=== PATIENT | male | born 1940 | race Caucasian/White ===

== ENCOUNTER 2017-10-08 17:30 | Emergency (ER) | payer MEDICARE, OTHER ==
[2017-10-08 17:42] VITALS: BP 135/74
--- NOTE | 2017-10-08 18:10 | RAD ---
INDICATION: LEFT elbow pain. Fall in March 2017. History of bursitis with drainage. Decreased range of motion. COMPARISON: No relevant prior exams available on the [facility] PACS for comparison. TECHNIQUE: AP, lateral, and oblique views LEFT elbow. REPORT: Negative for joint effusion, fracture, or malalignment. Preserved joint spaces. Small accessory ossicle or sequela of remote ligament or tendon injury at the lateral epicondyle. Significant dorsal soft tissue swelling. IMPRESSION: 1. Significant dorsal soft tissue swelling; correlate for olecranon bursitis. 2. Small accessory ossicle or sequela of remote ligament or tendon injury at the lateral epicondyle. .
--- NOTE | 2017-10-08 18:23 | UC ---
Gigi Burns Elizabeth, scribed for Chong Bird MD on 10/08/17 at 1814 . Upper Extremity HPI - HPI Summary HPI Summary: This patient is a 77 year old M presenting to [facility] with a chief complaint of intermittent left elbow pain and swelling since 1 week ago. The patient notes that he usually gets his elbow drained by an orthopedist. Per triage note, the patient reports that he has lost significant mobility in his left arm. The patient rates the pain 2/10 in severity. Symptoms aggravated by nothing. Symptoms alleviated by nothing. The patient notes that he came here today for medication to manage the pain and for a referral to an orthopedist. - History of Current Complaint Chief Complaint: UCUpperExtremity Stated Complaint: ELBOW PAIN Time Seen by Provider: 10/08/17 17:37 Hx Obtained From: Patient Onset/Duration: Gradual Onset, Lasting Weeks - 1 week, Still Present Severity Initially: Mild Severity Currently: Mild Pain Intensity: 2 Pain Scale Used: 0-10 Numeric Aggravating Factor(s): Nothing Alleviating Factor(s): Nothing Associated Signs And Symptoms: Positive: Swelling, Other - decreased ROM Related History: Other: - bursitis in left elbow - Allergies/Home Medications Allergies/Adverse Reactions: Allergies Allergy/AdvReac Type Severity Reaction Status Date / Time No Known Allergies Allergy Verified 10/08/17 17:42 Home Medications: Home Medications Atorvastatin* [Lipitor 20 MG*] 20 mg PO DAILY 10/08/17 [History Confirmed ] Lisinopril [Lisinopril 2.5 MG-] 2.5 mg PO DAILY 10/08/17 [History Confirmed ] Rivaroxaban TAB(*) [Xarelto 20 mg] 20 mg PO DAILY 10/08/17 [History Confirmed ] PMH/Surg Hx/FS Hx/Imm Hx Previously Healthy: Yes - Surgical History Surgical History: Yes Surgery Procedure, Year, and Place: 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 - Social History Alcohol Use: Daily Alcohol Amount: 1 beer or 1-2 glasses of wine/day Substance Use Type: None Smoking Status (MU): Former Smoker Type: Cigarettes Length of Time of Smoking/Using Tobacco: 12 years Have You Smoked in the Last Year: No When Did the Patient Quit Smoking/Using Tobacco: 44 years ago - Immunization History Most Recent Influenza Vaccination: January 2015 Most Recent Tetanus Shot: up to date Most Recent Pneumonia Vaccination: within 5 years Review of Systems Constitutional: Negative - NEGATIVE FEVER ENT: Negative - NEGATIVE EPISTAXIS Gastrointestinal: Negative - NEGATIVE VOMITING Musculoskeletal: Arthralgia - in left elbow, Decreased ROM - in left elbow, Edema - in left elbow All Other Systems Reviewed And Are Negative: Yes Physical Exam - Summary Physical Exam Summary: VITAL SIGNS: Reviewed. GENERAL: Patient is a well-developed and nourished MALE who is lying comfortable in the stretcher. Patient is not in any acute respiratory distress. HEAD AND FACE: Normocephalic EYES: PERRLA, EOMI x 2. EARS: Hearing grossly intact. MOUTH: Oropharynx within normal limits. NECK: Supple, trachea is midline, no adenopathy, no JVD, no carotid bruit. CHEST: Symmetric, no tenderness at palpation LUNGS: Clear to auscultation bilaterally. No wheezing or crackles. CVS: Regular rate and rhythm, S1 and S2 present, no murmurs or gallops appreciated. ABDOMEN: Soft, non-tender. Bowel sounds are normal. No abdominal abnormal pulsations. EXTREMITIES: no cyanosis or clubbing. Swelling in left elbow with no erythema, no increase in warmth, slight decrease in ROM, good pulses, good capillary refill NEURO: Alert and oriented x 3. No acute neurological deficits. Speech is normal and follows commands. SKIN: Dry and warm Triage Information Reviewed: Yes Vital Signs: Initial Vital Signs Temp 98.7 F 10/08/17 17:32 Pulse 67 10/08/17 17:32 Resp 18 10/08/17 17:32 BP 135/74 10/08/17 17:32 Pulse Ox 98 10/08/17 17:32 Vital Signs Reviewed: Yes Upper Extremity Course/Dx - Course Course Of Treatment: X-ray positive for bursitis. The patient was given a prescription for [place] and a referral for orthopedics. Patient is hemodynamically stable alert and oriented 3. - Differential Dx/Diagnosis Differential Diagnosis/HQI/PQRI: Bursitis, Fracture (Closed), Strain, Sprain Provider Diagnoses: Elbow bursitis Discharge - Sign-Out/Discharge Documenting (check all that apply): Discharge/Admit/Transfer - Discharge Plan Condition: Stable Disposition: HOME Discharge Disposition Comment: discharge home Prescriptions: Hydrocodone/Acetaminophen [[place] 5-325 mg] 1 tab PO Q6H PRN #12 tab MDD 4 PRN Reason: Pain Patient Education Materials: Elbow Bursitis (ED), Arthralgia (ED) Referrals: Trino Shore MD [Primary Care Provider] - Ankur Mullins MD [Medical Doctor] - 1 Day Additional Instructions: Take medications as instructed Increase your fluid intake Return to the UC if symptoms worsen - Billing Disposition and Condition Condition: STABLE Disposition: Home The documentation as recorded by the Gigi william Elizabeth accurately reflects the service I personally performed and the decisions made by me, Chong Bird MD.
== END 2017-10-08 18:26 | disposition home or self-care (01) ==
LOC: UCEAST 17:30
DX: M70.32 Other bursitis of elbow, left elbow (principal); Y93.9 Activity, unspecified; Z95.1 Presence of aortocoronary bypass graft; Z96.652 Presence of left artificial knee joint; Z87.891 Personal history of nicotine dependence
CPT/HCPCS: 99211; G0463

== ENCOUNTER 2018-10-05 08:51 | Emergency (ER) | payer MEDICARE, OTHER ==
--- OUTSIDE RECORDS SUMMARY | 2018-10-05 09:00 | XMS REPORT | Continuity of Care Document ---
:1940 External Reference #:[id number] Author Name Doris Oneill Care Team Providers Name Role Phone Suzan Mullen MD Primary Care Physician Unavailable Payers Date Identification Numbers Payment Provider Subscriber Policy Number: [id number] Medicare Krzysztof Hutchins PayID: [id number] [address] [place] [address] Effective: 2011 Policy Number: [id number] [employer] Krzysztof Hutchins Expires: 2016 PayID: [id number] [address] [address] [place] [address] Expires: 2016 Policy Number: [id number] Private Ins Krzysztof Hutchins PayID: [id number] Policy Number: [id number] [facility] Krzysztof Hutchins PayID: [id number] [address] [place] [address] Problems Active Problems Provider Date Chronic ischemic heart disease Lit Wang M.D., [facility], Onset: 2013 FASNC Atrial fibrillation Lit Wang M.D., [facility], Onset: 03/05/2015 FASNC Generalized ischemic myocardial Lit Wang M.D., [facility], Onset: 2015 dysfunction FASNC Note: EF 40-45% Coronary arteriosclerosis Lit Wang M.D., [place], [facility] Onset: 2017 Thoracic aortic ectasia Lit Wang M.D., [place], [facility] Onset: 10/03/2017 Cardiac defibrillator in situ Trino Shore M.D.,[facility] Onset: 01/08/2018 Note: w/ pacer Benign prostatic hypertrophy without Trino Shore M.D.,FACP Onset: outflow obstruction Family History Date Family Member(s) Observation Comments Father Congestive Heart Failure age 77 (CHF) Father due to Heart () Disease Mother Longivity lived to 100 Mother due to Natural () Causes Mother Depression Siblings 2 Brother: Fatal MS age47 Brother: HTN, living age 79 First Brother Hypertension : (age 47 Second Brother due to MS Years) Social History Type Date Description Comments Sex Unknown Marital Status Lives With Occupation Retired but runs a [employer] Tobacco Use Start: Unknown End: Former Cigarette Smoker Unknown Smoking Status Reviewed: 09/12/18 Former Cigarette Smoker ETOH Use Occasionally consumes alcohol ETOH Use 01/08/2018 consumes 3 beers per week Tobacco Use Start: Unknown End: Patient is a former Unknown smoker Recreational Drug Use Denies Drug Use Exercise Type/Frequency Exercises sporadically Allergies, Adverse Reactions, Alerts Active Allergies Reaction Severity Comments Date Altace Mild hypotension 09/08/2015 Medications Active Medications SIG Qnty Indications Ordering Date Provider Trazodone HCL 1-2 tablets at 30tabs G47.00 Jonathan Mckeon NP 09/12/2018 50mg bedtime as needed. Tablets Ropinirole HCL take 1 tablet by 90tabs Trino Hidalgo 01/08/2018 0.5mg mouth every night [place], Tablets for rls M.D.,FACP Shingrix 0.5 milliliters 2units Trino Hidalgo 01/08/2018 50mcg intramuscular now [place], Suspension Rec and 2-3 months later M.D.,FACP repeat Fluoxetine HCL 1 by mouth every day 90caps Jonathan Mckeon NP 07/20/2017 20mg Capsules Magnesium Oxide -MG 1 by mouth every day 120tabs Lit Bhaskar 02/22/2017 Supplement Valente Wang, 200mg FACCosmo, MATTHEW Tablets Wellbutrin XL take 1 tablet, 90tabs Trino Hidalgo 02/18/2017 150mg extended release 24 [place], Tablets ER 24HR hour orally every M.D.,FACP morning Furosemide 1 by mouth every day 90tabs Lit Bhaskar 02/05/2017 20mg Tablets Valente Wang, FACC, FASNC Dofetilide 1 by mouth twice a 180caps Lit Muro 01/22/2017 250mcg day Valente Wang, Capsules MATTHEW KELLEY Spironolactone 1 by mouth every day 90tabs Litra Muro 03/04/2015 25mg Valente Wang, Tablets MATTHEW KELLEY ALL Day Relief prn for pain Unknown 220mg Tablets Tamsulosin HCL 1 by mouth every day 90caps Jonathan Mckeon NP 0.4mg Capsules Clonazepam Take 1 Tablet By 60tabs Jonathan Mckeon NP 0.5mg Mouth Once Or Twice Tablets Daily as Needed (Max Dose Of 2 Per Day) Protonix take 1 tablet, 90tabs Trino Hidalgo 40mg Tablets delayed release DR Silviano (enteric coated) [facility] orally every day Metoprolol Succinate take 1 tablet by 90tabs Lit Muro ER mouth once daily Valente Wang, 25mg Tablets ER 24HR MATTHEW KELLEY Lisinopril 1 tablet by mouth 90tabs [facility] Bhaskar 2.5mg daily in the morning Valente Wang, Tablets MATTHEW KELLEY Xarelto 1 by mouth every day 90tabs [facility] Bhaskar 20mg Tablets Valente Wang FACC, FASNC Aspirin 1 by mouth every day 90units Unknown 81mg Chewtabs Atorvastatin Calcium take 1 tablet at 90tabs Litra Muro bedtime Valente Wang, 20mg Tablets MATTHEW KELLEY History Medications Altace 1 po qd 90caps [facility] Bhaskar Wang, 09/30/2012 - 10mg Capsules [place] Victor FASNC 03/04/2015 Pantoprazole Sodium 1 by mouth every Unknown - 40mg day 01/08/2018 Tablets Flomax 1 by mouth every 90caps Trino Hidalgo - 0.4mg Capsules trisha Shore M.D.,[facility] 01/08/2018 Cefpodoxime Proxetil ( 1 tablet po 2 Unknown - Vantin) times daily for 3 01/18/2016 200mg Tablets days Dofetilide ( Tikosyn) 1 cap po every 12 90tabs Lit Wang, - hours M.DZackery, [facility], [facility] 01/22/2017 Tablets Buproprion XL 1 by mouth daily Unknown - 150mg 03/23/2017 Ramipril 1 by mouth every Unknown - 10mg Capsules day 09/07/2015 Furosemide 2 by mouth every 180tabs Lit Wang, - 20mg Tablets morning M.D., [facility], [facility] 02/05/2017 Amiodarone HCL 1 by mouth bid Unknown - 200mg 08/27/2015 Tablets Flexeril 1 by mouth qd prn 60tabs Unknown - 10mg Tablets 10/09/2015 Clonazepam 1 by mouth twice Unknown - 0.5mg Tablets a day as needed 12/06/2016 Dispers Metoprolol Succinate 1 1/2 by mouth 135tabs Lit Wang, - ER every day M.DZackery, [facility], [facility] 01/18/2016 50mg Tablets ER 24HR Fluoxetine HCL (PMDD) 1 by mouth every 30caps Trino Hidalgo - day Valente Shore,[facility] 07/20/2017 20mg Capsules Medications Administered in Office Medication SIG Qnty Indications Ordering Provider Date Technetium TC 99M Lit Wang M.D., 09/24/2012 Tetrofosmin, Per Unit Dose [facility] Up To 40 Millicuries Injection Immunizations CPT Code Status Date Vaccine Lot # [id number] Given 01/08/2018 Influenza Virus Vaccine, Quadrivalent, Split, [id number] Preservative Free 09152 Given 12/28/2016 Influenza Virus Vaccine, Quadrivalent, Split, [id number] Preservative Free 06901 Given 12/28/2016 Pneumococcal Conjugate Vaccine 13 Valent For [id number] Intramuscular Use Vital Signs Date Vital Result Comment 09/12/2018 2:22pm Height 66.25 inches 5'6.25" Weight 188.00 lb Heart Rate 61 /min BP Systolic 128 mmHg BP Diastolic 75 mmHg Body Temperature 97.9 F O2 % BldC Oximetry 96 % BMI (Body Mass Index) 30.1 kg/m2 02/25/2018 12:48pm Height 66.25 inches 5'6.25" Weight 185.00 lb Heart Rate 60 /min regular BP Systolic Sitting 110 mmHg LA reg cuff BP Diastolic Sitting 65 mmHg LA reg cuff BP Systolic Standing 120 mmHg LA reg cuff BP Diastolic Standing 65 mmHg LA reg cuff Respiratory Rate 18 /min BMI (Body Mass Index) 29.6 kg/m2 Ejection Fraction 40-45% 02/18/18 ECHO 02/05/2018 10:12am Height 66.25 inches 5'6.25" Weight 186.00 lb Heart Rate 72 /min BP Systolic 125 mmHg BP Diastolic 71 mmHg Respiratory Rate 14 /min Pain Level 0 O2 % BldC Oximetry 98 % BMI (Body Mass Index) 29.8 kg/m2 01/08/2018 1:00pm Height 66.25 inches 5'6.25" Weight 188.00 lb Heart Rate 59 /min BP Systolic Sitting 118 mmHg BP Diastolic Sitting 54 mmHg Body Temperature 97.0 F O2 % BldC Oximetry 97 % BMI (Body Mass Index) 30.1 kg/m2 10/03/2017 9:57am Height 69 inches 5'9" Weight 186.00 lb Heart Rate 68 /min BP Systolic Sitting 154 mmHg BP Diastolic Sitting 80 mmHg BP Systolic Standing 130 mmHg BP Diastolic Standing 70 mmHg Respiratory Rate 20 /min BMI (Body Mass Index) 27.5 kg/m2 Ejection Fraction 40-45% 01-01-2017 10/03/2017 9:52am Height 69 inches 5'9" Respiratory Rate 16 /min Ejection Fraction 40-45% as of 12/2016 echo 03/27/2017 12:56pm Height 69 inches 5'9" Weight 180.00 lb Heart Rate 60 /min BP Systolic Sitting 122 mmHg Rue reg cuff BP Diastolic Sitting 74 mmHg Rue reg cuff BP Systolic Standing 120 mmHg Rue BP Diastolic Standing 72 mmHg Rue Respiratory Rate 16 /min BMI (Body Mass Index) 26.6 kg/m2 Ejection Fraction 40-45% 01/01/17 02/05/2017 8:12am Height 69 inches 5'9" Weight 182.00 lb with shoes Heart Rate 60 /min BP Systolic Sitting 116 mmHg Rue reg cuff BP Diastolic Sitting 66 mmHg Rue reg cuff BP Systolic Standing 122 mmHg Rue reg cuff BP Diastolic Standing 70 mmHg Rue reg cuff Respiratory Rate 15 /min BMI (Body Mass Index) 26.9 kg/m2 Ejection Fraction 40-45% 01/01/2017-echo 12/28/2016 1:35pm Height 69 inches 5'9" Weight 178.50 lb Heart Rate 58 /min BP Systolic Sitting 142 mmHg BP Diastolic Sitting 78 mmHg Respiratory Rate 14 /min Body Temperature 98.0 F BMI (Body Mass Index) 26.4 kg/m2 01/19/2016 9:30am Height 69 inches 5'9" Weight 173.00 lb with shoes Heart Rate 60 /min BP Systolic Sitting 140 mmHg Ra reg cuff BP Diastolic Sitting 90 mmHg Ra reg cuff BP Systolic Standing 134 mmHg Ra reg cuff BP Diastolic Standing 84 mmHg Ra reg cuff Respiratory Rate 16 /min BMI (Body Mass Index) 25.5 kg/m2 Ejection Fraction 30-35% date 08/27/15 ECHO 11/08/2015 12:14pm Height 69 inches 5'9" Weight 171.00 lb w/o shoes Heart Rate 88 /min irreg BP Systolic Sitting 118 mmHg Rue, reg cuff BP Diastolic Sitting 80 mmHg Rue, reg cuff BP Systolic Standing 112 mmHg Rue BP Diastolic Standing 84 mmHg Rue Respiratory Rate 16 /min BMI (Body Mass Index) 25.2 kg/m2 Ejection Fraction 30-35% As of 08/27/15 echo 09/08/2015 1:41pm Height 69 inches 5'9" Weight 180.00 lb with shoes Heart Rate 62 /min BP Systolic Sitting 122 mmHg LA reg cuff BP Diastolic Sitting 76 mmHg LA reg cuff BP Systolic Standing 116 mmHg LA reg cuff BP Diastolic Standing 72 mmHg LA reg cuff BMI (Body Mass Index) 26.6 kg/m2 Ejection Fraction 30% - 35% 08/27/15 echo 03/05/2015 10:42am Height 69 inches 5'9" Weight 158.50 lb w/shoes Heart Rate 86 /min BP Systolic Sitting 128 mmHg LA reg cuff BP Diastolic Sitting 90 mmHg LA reg cuff BP Systolic Standing 104 mmHg LA reg cuff BP Diastolic Standing 88 mmHg LA reg cuff BMI (Body Mass Index) 23.4 kg/m2 Ejection Fraction < 20 echo 02/24/15 12/26/2013 1:11pm Height 69 inches 5'9" Weight 188.00 lb Heart Rate 64 /min BP Systolic Sitting 140 mmHg left, reg BP Diastolic Sitting 80 mmHg left, reg BP Systolic Standing 130 mmHg BP Diastolic Standing 80 mmHg BMI (Body Mass Index) 27.8 kg/m2 Results Test Date Facility Test Result H/L Range Note Basic Metabolic 02/04/2018 [facility] Sodium 140 mmol/L N 135- 145 Panel [address] [place] [address] [phone] Potassium 4.5 mmol/L N 3.5-5.0 Chloride 105 mmol/L N 101-111 Co2 Carbon Dioxide 29 mmol/L N 22-32 Anion Gap 6 mmol/L N 2-11 Glucose 74 mg/dL N 70-100 Blood Urea Nitrogen 23 mg/dL N 6-24 Creatinine 1.34 mg/dL High 0.67-1.17 BUN/Creatinine Ratio 17.2 N 8-20 Calcium 9.2 mg/dL N 8.6-10.3 Egfr Non- 51.7 >60 Egfr 62.5 >60 1 Laboratory test 02/04/2018 [facility] Magnesium 2.0 mg/dL N 1.9-2.7 finding [address] [place] [address] [phone] Laboratory test 01/31/2018 [facility] Vitamin B12 484 pg/mL N 180-914 2 finding [address] [place] [address] [phone] Thyroid 01/31/2018 [facility] Thyroid Stim 3.7 mIU/L 0.3-4.2 3 Function [facility] [place] [address] [phone] Laboratory test 01/31/2018 [facility] B-Type 281 pg/mL High [address] [place] [address] Peptide BNP [phone] Basic Metabolic 01/31/2018 [facility] Sodium 140 N 135-145 Panel [address] [facility] [place] mmol/[place] [address] [phone] Potassium 4.4 mmol/L N 3.5-5.0 Chloride 108 mmol/L N 101-111 Co2 Carbon Dioxide 26 mmol/L N 22-32 Anion Gap 6 mmol/L N 2-11 Glucose 105 mg/dL High 70-100 Blood Urea Nitrogen 23 mg/dL N 6-24 Creatinine 1.24 mg/dL High 0.67-1.17 BUN/Creatinine Ratio 18.5 N 8-20 Calcium 8.8 mg/dL N 8.6-10.3 Egfr Non- 56.5 >60 Egfr 68.4 >60 5 CBC Auto Diff 01/31/2018 [facility] White Blood 6.6 10^3/uL N 3.5-10.[address] [place] [address] [phone] Red Blood Count 4.78 10^6/uL N 4.00-5.40 Hemoglobin 13.6 g/dL Low 14.0-18.0 Hematocrit 40 % Low 42-52 Mean Corpuscular Volume 85 fL N 80-94 Mean Corpuscular Hemoglobin 29 pg N 27-31 Mean Corpuscular HGB Conc 34 g/dL N 31-36 Red Cell Distribution Width 15 % N 10.5-15 Platelet Count 228 10^3/uL N 150-450 Mean Platelet Volume 8.6 um3 N 7.4-10.4 Abs Neutrophils 3.7 10^3/uL N 1.5-7.7 Abs Lymphocytes 1.7 10^3/uL N 1.0-4.8 Abs Monocytes 0.8 10^3/uL N 0-0.8 Abs Eosinophils 0.3 10^3/uL N 0-0.6 Abs Basophils 0 10^3/uL N 0-0.2 Abs Nucleated RBC 0 10^3/uL Granulocyte % 56.5 % N 38-83 Lymphocyte % 25.2 % N 25-47 Monocyte % 12.8 % High 0-7 Eosinophil % 4.9 % N 0-6 Basophil % 0.6 % N 0-2 Nucleated Red Blood Cells % 0.1 Lipid Profile 01/31/2018 [facility] Triglycerides 60 mg/dL 6 (Trig/Chol/HDL) [address] [place] [address] [phone] Cholesterol 118 mg/dL 7 HDL Cholesterol 45.9 mg/dL 8 LDL Cholesterol 60 mg/dL 9 Laboratory test 01/31/2018 [facility] Magnesium 1.8 mg/dL Low 1.9-2.[address] [place] [address] [phone] Laboratory test 03/26/2017 [facility] Magnesium 2.0 mg/dL N 1.9-2.[address] [place] [address] [phone] Laboratory test 02/21/2017 [facility] Magnesium 1.9 mg/dL N 1.9-2.7 11 finding [address] [place] [address] [phone] Basic Metabolic 02/21/2017 [facility] Sodium 138 mmol/L N 133- 145 Panel [address] [place] [address] [phone] Potassium 4.2 mmol/L N 3.5-5.0 Chloride 105 mmol/L N 101-111 Co2 Carbon Dioxide 27 mmol/L N 22-32 Anion Gap 6 mmol/L N 2-11 Glucose 124 mg/dL High 70-100 Blood Urea Nitrogen 25 mg/dL High 6-24 Creatinine 1.13 mg/dL N 0.67-1.17 BUN/Creatinine Ratio 22.1 High 8-20 Calcium 8.9 mg/dL N 8.6-10.3 Egfr Non- 63.1 N >60 Egfr 81.1 N >60 12 Basic Metabolic Panel 01/25/2017 [facility] Sodium 136 mmol/L N 133-145 [address] [place] [address] [phone] Potassium 4.1 mmol/L N 3.5-5.0 Chloride 102 mmol/L N 101-111 Co2 Carbon Dioxide 25 mmol/L N 22-32 Anion Gap 9 mmol/L N 2-11 Glucose 81 mg/dL N 70-100 Blood Urea Nitrogen 29 mg/dL High 6-24 Creatinine 1.54 mg/dL High 0.67-1.17 BUN/Creatinine Ratio 18.8 N 8-20 Calcium 8.9 mg/dL N 8.6-10.3 Egfr Non- 44.1 N >60 Egfr 56.8 N >60 13 Laboratory test 01/25/2017 [facility] Magnesium 2.1 mg/dL N 1.9-2.7 finding [address] [place] [address] [phone] Comp Metabolic 09/21/2016 [facility] Sodium 136 mmol/L N 133- 145 Panel [address] [place] [address] [phone] Potassium 3.9 mmol/L N 3.5-5.0 Chloride 101 mmol/L N 101-111 Co2 Carbon Dioxide 28 mmol/L N 22-32 Anion Gap 7 mmol/L N 2-11 Glucose 98 mg/dL N 70-100 Blood Urea Nitrogen 20 mg/dL N 6-24 Creatinine 1.10 mg/dL N 0.67-1.17 BUN/Creatinine Ratio 18.2 N 8-20 Calcium 8.7 mg/dL N 8.6-10.3 Total Protein 6.6 g/dL N 6.4-8.9 Albumin 3.9 g/dL N 3.2-5.2 Globulin 2.7 g/dL N 2-4 Albumin/Globulin Ratio 1.4 N 1-3 Total Bilirubin 1.10 mg/dL High 0.2-1.0 Alkaline Phosphatase 65 U/L N 34-104 Alt 12 U/L N 7-52 Ast 18 U/L N 13-39 Egfr Non- 65.1 N >60 Egfr 83.7 N >60 14 Lipid Profile 09/21/2016 [facility] Triglycerides 72 mg/dL N 15 (Trig/Chol/HDL) [address] [place] [address] [phone] Cholesterol 116 mg/dL N 16 HDL Cholesterol 40.8 mg/dL N 17 LDL Cholesterol 61 mg/dL N 18 CBC Auto Diff 09/21/2016 [facility] White Blood 7.8 10^3/uL N 3.5-10.[address] [place] [address] [phone] Red Blood Count 4.70 10^6/uL N 4.0-5.4 Hemoglobin 13.9 g/dL Low 14.0-18.0 Hematocrit 41 % Low 42-52 Mean Corpuscular Volume 87 fL N 80-94 Mean Corpuscular Hemoglobin 30 pg N 27-31 Mean Corpuscular HGB Conc 34 g/dL N 31-36 Red Cell Distribution Width 13 % N 10.5-15 Platelet Count 183 10^3/uL N 150-450 Mean Platelet Volume 9 um3 N 7.4-10.4 Abs Neutrophils 4.5 10^3/uL N 1.5-7.7 Abs Lymphocytes 1.9 10^3/uL N 1.0-4.8 Abs Monocytes 1.1 10^3/uL High 0-0.8 Abs Eosinophils 0.3 10^3/uL N 0-0.6 Abs Basophils 0 10^3/uL N 0-0.2 Abs Nucleated RBC 0 10^3/uL N Granulocyte % 57.5 % N 38-83 Lymphocyte % 24.5 % Low 25-47 Monocyte % 14.2 % High 1-9 Eosinophil % 3.5 % N 0-6 Basophil % 0.3 % N 0-2 Nucleated Red Blood Cells % 0 N CBC No Diff 01/10/2016 [facility] White Blood 6.2 10^3/uL N 3.5-10.[address] [place] [address] [phone] Red Blood Count 4.47 10^6/uL N 4.0-5.4 Hemoglobin 12.8 g/dL Low 14.0-18.0 Hematocrit 38 % Low 42-52 Mean Corpuscular Volume 85 fL N 80-94 Mean Corpuscular Hemoglobin 29 pg N 27-31 Mean Corpuscular HGB Conc 34 g/dL N 31-36 Red Cell Distribution Width 14 % N 10.5-15 Platelet Count 287 10^3/uL N 150-450 Mean Platelet Volume 8 um3 N 7.4-10.4 Basic Metabolic Panel 01/10/2016 [facility] Sodium 134 mmol/L N 133-145 [address] [place] [address] [phone] Potassium 4.1 mmol/L N 3.5-5.0 Chloride 102 mmol/L N 101-111 Co2 Carbon Dioxide 26 mmol/L N 22-32 Anion Gap 6 mmol/L N 2-11 Glucose 122 mg/dL High 70-100 Blood Urea Nitrogen 24 mg/dL N 6-24 Creatinine 1.11 mg/dL N 0.67-1.17 BUN/Creatinine Ratio 21.6 High 8-20 Calcium 8.7 mg/dL N 8.6-10.3 Egfr Non- 64.6 N >60 Egfr 83.1 N >60 19 Basic Metabolic Panel 10/18/2015 [facility] Sodium 136 mmol/L N 133-145 [address] [place] [address] [phone] Potassium 3.8 mmol/L N 3.5-5.0 Chloride 100 mmol/L Low 101-111 Co2 Carbon Dioxide 27 mmol/L N 22-32 Anion Gap 9 mmol/L N 2-11 Glucose 166 mg/dL High 70-100 Blood Urea Nitrogen 35 mg/dL High 6-24 Creatinine 1.53 mg/dL High 0.67-1.17 BUN/Creatinine Ratio 22.9 High 8-20 Calcium 9.2 mg/dL N 8.6-10.3 Egfr Non- 44.6 N >60 Egfr 57.3 N >60 20 FLP/Alt Panel 09/07/2015 [facility] Alt (SGPT) 17 U/L N 7-[address] [place] [address] [phone] Lipid Profile 09/07/2015 [facility] Triglycerides 73 mg/dL N 21 (Trig/Chol/HDL) [address] [place] [address] [phone] Cholesterol 102 mg/dL N 22 HDL Cholesterol 34.7 mg/dL N 23 LDL Cholesterol 53 mg/dL N 24 CBC Auto Diff 02/24/2015 [facility] White Blood 7.6 10^3/uL N 4.8-10.[address] [place] [address] [phone] Red Blood Count 4.95 10^6/uL N 4.0-5.4 Hemoglobin 14.1 g/dL N 14.0-18.0 Hematocrit 44 % N 42-52 Mean Corpuscular Volume 89 fL N 80-94 Mean Corpuscular Hemoglobin 28 pg N 27-31 Mean Corpuscular HGB Conc 32 g/dL N 31-36 Red Cell Distribution Width 14 % N 10.5-15 Platelet Count 239 10^3/uL N 150-450 Mean Platelet Volume 9 um3 N 7.4-10.4 Abs Neutrophils 5.1 10^3/uL N 1.5-7.7 Abs Lymphocytes 1.4 10^3/uL N 1.0-4.8 Abs Monocytes 0.8 10^3/uL N 0-0.8 Abs Eosinophils 0.1 10^3/uL N 0-0.6 Abs Basophils 0.1 10^3/uL N 0-0.2 Abs Nucleated RBC 0.01 10^3/uL N Granulocyte % 67.3 % N 38-83 Lymphocyte % 18.9 % Low 25-47 Monocyte % 10.7 % High 1-9 Eosinophil % 1.5 % N 0-6 Basophil % 1.6 % N 0-2 Nucleated Red Blood Cells % 0.1 N Inr/Protime 02/24/2015 [facility] Inr 1.21 High 0.89-1.[address] [place] [address] [phone] Laboratory test 02/24/2015 [facility] Partial 29.3 N 26.0- 36.3 finding [address] [facility] [place] [address] Time PTT [phone] Comp Metabolic 02/24/2015 [facility] Albumin 4.1 g/dL N 3.2- 5.[address] [place] [address] [phone] Total Bilirubin 1.20 mg/dL High 0.2-1.0 Sodium 137 mmol/L N 133-145 Potassium 4.4 mmol/L N 3.5-5.0 Chloride 107 mmol/L N 101-111 Co2 Carbon Dioxide 21 mmol/L Low 22-32 Anion Gap 9 mmol/L N 2-11 Glucose 103 mg/dL High 70-100 Blood Urea Nitrogen 23 mg/dL N 6-24 Creatinine 1.29 mg/dL High 0.67-1.17 BUN/Creatinine Ratio 17.8 N 8-20 Calcium 9.3 mg/dL N 8.6-10.3 Total Protein 6.8 g/dL N 6.4-8.9 Globulin 2.7 g/dL N 2-4 Albumin/Globulin Ratio 1.5 N 1-3 Alkaline Phosphatase 87 U/L N 34-104 Alt 32 U/L N 7-52 Ast 26 U/L N 13-39 Egfr Non- 54.4 N >60 Egfr 70.0 N >60 26 Laboratory test 02/24/2015 [facility] Troponin-I 0.01 ng/mL N <0.[address] (TnI) [place] [address] [phone] CKMB 02/24/2015 [facility] CKMB ng/mL 3.6 ng/mL N 0.6-6.[address] [place] [address] [phone] Laboratory test 02/24/2015 [facility] Magnesium 1.7 mg/dL Low 1.9-2.[address] [place] [address] [phone] TSH (Thyroid Stim Horm) 2.22 ?IU/mL N 0.34-5.60 D Dimer Quantitative 582 ng/mL High Less Than 230 28 B-Type Natriuretic Peptide BNP 241 pg/mL High 29 CBC Auto Diff 11/13/2013 [facility] White Blood 6.8 10^3/uL N 4.8-10.[address] [place] [address] [phone] Red Blood Count 4.88 10^6/uL N 4.0-5.4 Hemoglobin 14.7 g/dL N 14.0-18.0 Hematocrit 43 % N 42-52 Mean Corpuscular Volume 87 fL N 80-94 Mean Corpuscular Hemoglobin 30 pg N 27-31 Mean Corpuscular HGB Conc 34 g/dL N 31-36 Red Cell Distribution Width 13 % N 10.5-15 Platelet Count 201 10^3/uL N 150-450 Mean Platelet Volume 9 um3 N 7.4-10.4 Abs Neutrophils 3.8 10^3/uL N 1.5-7.7 Abs Lymphocytes 1.8 10^3/uL N 1.0-4.8 Abs Monocytes 0.8 10^3/uL N 0-0.8 Abs Eosinophils 0.3 10^3/uL N 0-0.6 Abs Basophils 0 10^3/uL N 0-0.2 Abs Nucleated RBC 0.01 10^3/uL N Granulocyte % 55.2 % N 38-83 Lymphocyte % 27.1 % N 25-47 Monocyte % 12.2 % High 1-9 Eosinophil % 5.1 % N 0-6 Basophil % 0.4 % N 0-2 Nucleated Red Blood Cells % 0.1 N Comp Metabolic Panel 11/13/2013 [facility] Sodium 138 mmol/L N 133-[address] [place] [address] [phone] Potassium 4.2 mmol/L N 3.7-5.6 Chloride 103 mmol/L N 101-111 Co2 Carbon Dioxide 31 mmol/L N 22-32 Anion Gap 4 mmol/L N 2-11 Glucose 95 mg/dL N 70-100 Blood Urea Nitrogen 20 mg/dL N 6-24 Creatinine 1.03 mg/dL N 0.67-1.17 BUN/Creatinine Ratio 19.4 N 8-20 Calcium 8.6 mg/dL N 8.6-10.3 Total Protein 6.1 g/dL Low 6.4-8.9 Albumin 3.9 g/dL N 3.2-5.2 Globulin 2.2 g/dL N 2-4 Albumin/Globulin Ratio 1.8 N 1-3 Total Bilirubin 0.70 mg/dL N 0.2-1.0 Alkaline Phosphatase 61 U/L N 34-104 Alt 12 U/L N 7-52 Ast 17 U/L N 13-39 Egfr Non- 70.8 N >60 Egfr 91.0 N >60 30 Lipid Profile 11/13/2013 [facility] Triglycerides 68 mg/dL N 31 (Trig/Chol/HDL) [address] [place] [address] [phone] Cholesterol 107 mg/dL N 32 HDL Cholesterol 40.2 mg/dL N 33 LDL Cholesterol 53 mg/dL N 34 Laboratory test 11/13/2013 [facility] Lyme Disease Negative N Negative 35 finding [address] [facility] [place] [address] [phone] Lipid Profile 03/13/2013 [facility] Triglycerides 59 mg/dL 40 -200 (Trig/Chol/HDL) [address] [place], [place] [id number] [phone] Cholesterol 119 mg/dL Less than 200 HDL Cholesterol 44 mg/dL 40-60 36 Cholesterol/HDL Ratio 2.7 Average 1-4.44 LDL Cholesterol 63.2 Less Than 100 37 Laboratory test 03/13/2013 [facility] Ast 21 U/L 12-42 38 finding [address] [place] [address] [phone] Lipid Profile 10/28/2012 [facility] Triglycerides 50 mg/dL 40 -200 (Trig/Chol/HDL) [address] [place] [address] [phone] Cholesterol 103 mg/dL Less than 200 HDL Cholesterol 39 mg/dL Low 40-60 39 Cholesterol/HDL Ratio 2.6 Average 1-4.44 LDL Cholesterol 54.0 Less Than 100 40 Comp Metabolic Panel 10/28/2012 [facility] Sodium 138 mmol/L 133-145 [address] [place] [address] [phone] Potassium 4.2 mmol/L 3.5-5.0 Chloride 102 mmol/L 101-111 Co2 Carbon Dioxide 29.0 mmol/L 22-32 Anion Gap 7.0 mmol/L 2-11 Glucose 100 mg/dL 70-100 Blood Urea Nitrogen 16 mg/dL 6-24 Creatinine 1.00 mg/dL 0.50-1.40 BUN/Creatinine Ratio 16.0 8-20 Calcium 8.5 mg/dL 8.1-9.9 Total Protein 6.2 g/dL 6.2-8.1 Albumin 3.6 g/dL 3.2-5.2 Globulin 2.6 g/dL 2-4 Albumin/Globulin Ratio 1.4 1-3 Total Bilirubin 1.3 mg/dL 0.4-1.5 Alkaline Phosphatase 78 U/L 30-110 Alt 16 U/L 14-54 Ast 18 U/L 12-42 Egfr Non- 73.5 >60 Egfr 94.5 >60 41 CBC Auto Diff 10/28/2012 [facility] White Blood 10.3 10^3/uL 4.8-10.[address] [place] [address] [phone] Red Blood Count 4.96 10^6/uL 4.0-5.4 Hemoglobin 14.3 g/dL 14.0-18.0 Hematocrit 44 % 42-52 Mean Corpuscular Volume 89 fL 80-94 Mean Corpuscular Hemoglobin 29 pg 27-31 Mean Corpuscular HGB Conc 33 g/dL 31-36 Red Cell Distribution Width 13 % 10.5-15 Platelet Count 207 10^3/uL 150-450 Mean Platelet Volume 9 um3 7.4-10.4 Abs Neutrophils 7.1 10^3/uL 1.5-7.7 Abs Lymphocytes 1.7 10^3/uL 1.0-4.8 Abs Monocytes 1.3 10^3/uL High 0-0.8 Abs Eosinophils 0.2 10^3/uL 0-0.6 Abs Basophils 0 10^3/uL 0-0.2 Abs Nucleated RBC 0 10^3/uL Granulocyte % 68.8 % 38-83 Lymphocyte % 16.5 % Low 25-47 Monocyte % 12.2 % High 1-9 Eosinophil % 2.3 % 0-6 Basophil % 0.2 % 0-2 Nucleated Red Blood Cells % 0 1 Because ethnic data is not always readily available, this report includes an eGFR for both -Americans and non- Americans. The National Kidney Disease Education Program (NKDEP) does not endorse the use of the MDRD equation for patients that are not between the ages of 18 and 70, are , have extremes of body size, muscle mass, or nutritional status, or are non- or non-. According to the National Kidney Foundation, irrespective of diagnosis, the stage of the disease is based on the level of kidney function: Stage Description GFR(mL/min/1.73 m(2)) 1 Kidney damage with normal or decreased GFR 90 2 Kidney damage with mild decrease in GFR 60-89 3 Moderate decrease in GFR 30-59 4 Severe decrease in GFR 15-29 5 Kidney failure <15 (or dialysis) 2 Normal Range 180 to 914 Indeterminate Range 145 to 180 Deficient Range <145 3 Test Performed by: [address] [id number] 4 >100 to <200 pg/mL: likely compensated congestive heart failure (CHF) 200 to 400 pg/mL: likely moderate CHF >400 pg/mL: likely moderate to severe CHF 5 Because ethnic data is not always readily available, this report includes an eGFR for both -Americans and non- Americans. The National Kidney Disease Education Program (NKDEP) does not endorse the use of the MDRD equation for patients that are not between the ages of 18 and 70, are , have extremes of body size, muscle mass, or nutritional status, or are non- or non-. According to the National Kidney Foundation, irrespective of diagnosis, the stage of the disease is based on the level of kidney function: Stage Description GFR(mL/min/1.73 m(2)) 1 Kidney damage with normal or decreased GFR 90 2 Kidney damage with mild decrease in GFR 60-89 3 Moderate decrease in GFR 30-59 4 Severe decrease in GFR 15-29 5 Kidney failure <15 (or dialysis) 6 Desirable: <150 Borderline High: 150-199 High: 200-499 Very High: >500 7 Desirable: <200 Borderline High: 200-239 High: >239 8 Low: <40 Desirable: 40-60 High: >60 9 Desirable: <100 Near Optimal: 100-129 Borderline High: 130-159 High: 160-189 Very High: >189 10 FASTING 10 HOUR 11 draw in 2 weeks 12 Because ethnic data is not always readily available, this report includes an eGFR for both -Americans and non- Americans. The National Kidney Disease Education Program (NKDEP) does not endorse the use of the MDRD equation for patients that are not between the ages of 18 and 70, are , have extremes of body size, muscle mass, or nutritional status, or are non- or non-. According to the National Kidney Foundation, irrespective of diagnosis, the stage of the disease is based on the level of kidney function: Stage Description GFR(mL/min/1.73 m(2)) 1 Kidney damage with normal or decreased GFR 90 2 Kidney damage with mild decrease in GFR 60-89 3 Moderate decrease in GFR 30-59 4 Severe decrease in GFR 15-29 5 Kidney failure <15 (or dialysis) 13 Because ethnic data is not always readily available, this report includes an eGFR for both -Americans and non- Americans. The National Kidney Disease Education Program (NKDEP) does not endorse the use of the MDRD equation for patients that are not between the ages of 18 and 70, are , have extremes of body size, muscle mass, or nutritional status, or are non- or non-. According to the National Kidney Foundation, irrespective of diagnosis, the stage of the disease is based on the level of kidney function: Stage Description GFR(mL/min/1.73 m(2)) 1 Kidney damage with normal or decreased GFR 90 2 Kidney damage with mild decrease in GFR 60-89 3 Moderate decrease in GFR 30-59 4 Severe decrease in GFR 15-29 5 Kidney failure <15 (or dialysis) 14 Because ethnic data is not always readily available, this report includes an eGFR for both -Americans and non- Americans. The National Kidney Disease Education Program (NKDEP) does not endorse the use of the MDRD equation for patients that are not between the ages of 18 and 70, are , have extremes of body size, muscle mass, or nutritional status, or are non- or non-. According to the National Kidney Foundation, irrespective of diagnosis, the stage of the disease is based on the level of kidney function: Stage Description GFR(mL/min/1.73 m(2)) 1 Kidney damage with normal or decreased GFR 90 2 Kidney damage with mild decrease in GFR 60-89 3 Moderate decrease in GFR 30-59 4 Severe decrease in GFR 15-29 5 Kidney failure <15 (or dialysis) 15 Desirable <150 Borderline high 150-199 High 200-499 Very High >500 16 Desirable <200 Borderline high 200-239 High >239 17 Low <40 Desirable: 40-60 High: >60 18 Desirable: <100 mg/dL Near Optimal: 100-129 mg/dL Borderline High: 130-159 mg/dL High: 160-189 mg/dL Very High: >189 mg/dL 19 Because ethnic data is not always readily available, this report includes an eGFR for both -Americans and non- Americans. The National Kidney Disease Education Program (NKDEP) does not endorse the use of the MDRD equation for patients that are not between the ages of 18 and 70, are , have extremes of body size, muscle mass, or nutritional status, or are non- or non-. According to the National Kidney Foundation, irrespective of diagnosis, the stage of the disease is based on the level of kidney function: Stage Description GFR(mL/min/1.73 m(2)) 1 Kidney damage with normal or decreased GFR 90 2 Kidney damage with mild decrease in GFR 60-89 3 Moderate decrease in GFR 30-59 4 Severe decrease in GFR 15-29 5 Kidney failure <15 (or dialysis) 20 Because ethnic data is not always readily available, this report includes an eGFR for both -Americans and non- Americans. The National Kidney Disease Education Program (NKDEP) does not endorse the use of the MDRD equation for patients that are not between the ages of 18 and 70, are , have extremes of body size, muscle mass, or nutritional status, or are non- or non-. According to the National Kidney Foundation, irrespective of diagnosis, the stage of the disease is based on the level of kidney function: Stage Description GFR(mL/min/1.73 m(2)) 1 Kidney damage with normal or decreased GFR 90 2 Kidney damage with mild decrease in GFR 60-89 3 Moderate decrease in GFR 30-59 4 Severe decrease in GFR 15-29 5 Kidney failure <15 (or dialysis) 21 Desirable <150 Borderline high 150-199 High 200-499 Very High >500 22 Desirable <200 Borderline high 200-239 High >239 23 Low <40 Desirable: 40-60 High: >60 24 Desirable: <100 mg/dL Near Optimal: 100-129 mg/dL Borderline High: 130-159 mg/dL High: 160-189 mg/dL Very High: >189 mg/dL 25 Effective immediately, due to a laboratory mean normal Protime change, the reference range for the INR has changed. 26 Because ethnic data is not always readily available, this report includes an eGFR for both -Americans and non- Americans. The National Kidney Disease Education Program (NKDEP) does not endorse the use of the MDRD equation for patients that are not between the ages of 18 and 70, are , have extremes of body size, muscle mass, or nutritional status, or are non- or non-. According to the National Kidney Foundation, irrespective of diagnosis, the stage of the disease is based on the level of kidney function: Stage Description GFR(mL/min/1.73 m(2)) 1 Kidney damage with normal or decreased GFR 90 2 Kidney damage with mild decrease in GFR 60-89 3 Moderate decrease in GFR 30-59 4 Severe decrease in GFR 15-29 5 Kidney failure <15 (or dialysis) 27 Reference Range and Interpretation: TnI (ng/mL) Interpretation Less Than 0.03 ng/mL Not supportive of diagnosis of MS 0.03 - 0.50 ng/mL Indeterminate: suggest serial studies if clinically indicated. Greater than 0.5 ng/mL Consistent with diagnosis of MS 28 Please note: The following may produce a false positive D Dimer test: - Rheumatoid factor greater than 60 IU/ml - Plasma hemoglobin greater than 0.05 gm/dl - Bilirubin greater than 50 mg/dl - Lipids greater than 1000 mg/dl - FDP greater than 20 ug/ml 29 >100 to <200 pg/mL: likely compensated congestive heart failure (CHF) 200 to 400 pg/mL: likely moderate CHF >400 pg/mL: likely moderate to severe CHF 30 Because ethnic data is not always readily available, this report includes an eGFR for both -Americans and non- Americans. The National Kidney Disease Education Program (NKDEP) does not endorse the use of the MDRD equation for patients that are not between the ages of 18 and 70, are , have extremes of body size, muscle mass, or nutritional status, or are non- or non-. According to the National Kidney Foundation, irrespective of diagnosis, the stage of the disease is based on the level of kidney function: Stage Description GFR(mL/min/1.73 m(2)) 1 Kidney damage with normal or decreased GFR 90 2 Kidney damage with mild decrease in GFR 60-89 3 Moderate decrease in GFR 30-59 4 Severe decrease in GFR 15-29 5 Kidney failure <15 (or dialysis) 31 Desirable <150 Borderline high 150-199 High 200-499 Very High >500 32 Desirable <200 Borderline high 200-239 High >239 33 Low <40 Desirable: 40-60 High: >60 34 Desirable <100 Near Optimal 100-129 Borderline high 130-159 High 160-189 Very High >189 35 Serologic response to B. burgdorferi infection is not detected, but cannot rule out early infection during which low or undetectable antibody levels to B. burgdorferi may be present. If clinically indicated, a new serum specimen should be submitted in 7-14 days. Test Performed by: [place] [address] Cost Estimating Clerk: Sam Quick III, M.D. 36 HDL Interpretation: Undesirable: High Risk: Less than 40 mg/dL Desirable: Low Risk: Greater than 60 mg/dL 37 LDL Interpretation: Low Risk Optimal Level: LDL Less than 100 mg/dL Near or Above Optimal: LDL 100-129 mg/dL Borderline High Risk: LDL 130-159 mg/dL High Risk: LDL 160-189 mg/dL Very High Risk: LDL Greater than 189 mg/dL 38 PT IS FASTING 39 HDL Interpretation: Undesirable: High Risk: Less than 40 mg/dL Desirable: Low Risk: Greater than 60 mg/dL 40 LDL Interpretation: Low Risk Optimal Level: LDL Less than 100 mg/dL Near or Above Optimal: LDL 100-129 mg/dL Borderline High Risk: LDL 130-159 mg/dL High Risk: LDL 160-189 mg/dL Very High Risk: LDL Greater than 189 mg/dL 41 Because ethnic data is not always readily available, this report includes an eGFR for both -Americans and non- Americans. The National Kidney Disease Education Program (NKDEP) does not endorse the use of the MDRD equation for patients that are not between the ages of 18 and 70, are , have extremes of body size, muscle mass, or nutritional status, or are non- or non-. According to the National Kidney Foundation, irrespective of diagnosis, the stage of the disease is based on the level of kidney function: Stage Description GFR(mL/min/1.73 m(2)) 1 Kidney damage with normal or decreased GFR 90 2 Kidney damage with mild decrease in GFR 60-89 3 Moderate decrease in GFR 30-59 4 Severe decrease in GFR 15-29 5 Kidney failure <15 (or dialysis) Procedures Date Code Description Status 06/12/2018 81460 Icd Eval Sing,Dual,Multi Lead Remote Recpt Transm Tech Completed Rev Tech S 06/12/2018 37956 Icd Eval Sing,Dual,Multi Lead Remote Recpt Transm Tech Completed Rev Tech S 06/12/2018 99882 Icd Check Remote Up To 90 Days Single,Dual,Multiple Completed Lead 06/12/2018 29107 Icd Check Remote Up To 90 Days Single,Dual,Multiple Completed Lead 02/18/2018 60494 ECHO Transthoracic, Real-Time 2D With Doppler And Color Completed Flow 02/18/2018 77993 ECHO Transthoracic, Real-Time 2D With Doppler And Color Completed Flow 02/18/2018 49357 Icd Eval With Inerative Adjustmt Dual Lead System Completed 02/18/2018 21079 Icd Eval With Inerative Adjustmt Dual Lead System Completed 02/05/2018 14001 EKG Tracing & Interpretation Completed 02/05/2018 87449 EKG Tracing & Interpretation Completed 10/03/2017 10080 EKG Tracing & Interpretation Completed 08/29/2017 19291 Icd Eval With Inerative Adjustmt Dual Lead System Completed 08/29/2017 32029 Icd Eval With Inerative Adjustmt Dual Lead System Completed 03/07/2017 32040 Icd Eval With Inerative Adjustmt Dual Lead System Completed 03/07/2017 72635 Icd Eval With Inerative Adjustmt Dual Lead System Completed 02/05/2017 14150 EKG Tracing & Interpretation Completed 01/01/2017 07970 ECHO Transthoracic, Real-Time 2D With Doppler And Color Completed Flow 01/19/2016 40874 EKG Tracing & Interpretation Completed 11/08/2015 46986 EKG Tracing & Interpretation Completed 09/08/2015 61599 EKG Tracing & Interpretation Completed 08/27/2015 34769 ECHO Transthoracic, Real-Time 2D With Doppler And Color Completed Flow 03/05/2015 14918 EKG Tracing & Interpretation Completed 02/25/2015 31171 Cardioversion Completed 02/25/2015 58715 EKG, Interpretation Only Completed 02/25/2015 54702 Echocardiography, Transesophageal, Real Time W/Image 2D Completed W/W/O M-M 02/25/2015 81361 Pulse Wave/Continuous-Interp.RPT Completed 02/25/2015 66633 Color Flow Doppler/Interp & Reprt Completed 02/24/2015 25004 ECHO Transthorasic Realtime 2D W Doppler & Color Flow Completed Hosp 11/25/2013 55469783 Colonoscopy Completed 09/24/2012 51629 Stress Test Completed 09/24/2012 89946 Myocardial Perfusion Imaging Tomographic (Spect) Completed Multiple Studies 09/17/2012 44516 EKG Tracing & Interpretation Completed 04/19/2008 34682 EKG, Interpretation Only Completed 04/19/2008 89770 EKG, Interpretation Only Completed Encounters Type Date Location Provider Dx Diagnosis Office Visit 02/25/2018 [facility] 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: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 Of Slim Wang M.D., disease of [place]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, 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 I77.810 Thoracic aortic ectasia Z95.1 Presence of aortocoronary bypass graft I25.5 Ischemic cardiomyopathy Office Visit 01/08/2018 1:00p [facility] Internal Trino Hidalgo Z00.01 Encounter for Medicine Valente Shore,FACP general adult medical exam w abnormal findings I25.5 Ischemic cardiomyopathy I10 Essential (primary) hypertension F33.0 Major depressive disorder, recurrent, mild G25.81 Restless legs syndrome R41.3 Other amnesia Z23 Encounter for immunization Office Visit 10/03/2017 10:15a [facility] I25.10 Athscl heart Of Slim Wang M.D., disease of FACC, FASNC [place] coronary artery w/o ang pctrs I77.810 Thoracic aortic ectasia Z95.1 Presence of aortocoronary bypass graft Office Visit 03/27/2017 1:30p [facility] I25.5 Ischemic Of Slim Wang M.D., cardiomyopathy FACC, FASNC Z95.818 Presence of other cardiac implants and grafts Office Visit 02/05/2017 8:45a [facility] I42.9 Cardiomyopathy, Cardiology Of Valente Wang, unspecified Tobacco Sample Puller FACC, FASNC 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 Office Visit 12/28/2016 1:10p [facility] Internal Renee I10 Essential (primary ) Medicine - TOMASZ Zamora hypertension [address] F41.9 Anxiety disorder, unspecified Z23 Encounter for immunization Office Visit 01/19/2016 9:45a [facility] I48.91 Unspecified atrial Of Slim Wang M.D., fibrillation FACC, FASNC I25.810 Atherosclerosis of CABG w/o angina pectoris I42.9 Cardiomyopathy, unspecified I10 Essential (primary) hypertension Office Visit 11/08/2015 [facility] I42.9 Cardiomyopathy, 1:00p Cardiology Of Valente Wang, unspecified Tobacco Sample Puller FACC, FASNC Office Visit 09/08/2015 [facility] I42.9 Cardiomyopathy, 1:30p Cardiology Lizette Wang M.D., unspecified Tobacco Sample Puller FACC, FASNC Office Visit 03/05/2015 [facility] I48.91 Unspecified atrial 10:45a Cardiology Valente Wang, fibrillation FACC, FASNC Office Visit 02/26/2015 [facility] I48.1 Persistent atrial 1:04p Cardiology Of [place], fibrillation [facility] FACC I42.9 Cardiomyopathy, unspecified I51.9 Heart disease, unspecified I25.810 Atherosclerosis of CABG w/o angina pectoris Office Visit 02/26/2015 [facility] Castellon I48.91 Unspecified atrial 1:29p Assoc,gregg Grimes M.D. fibrillation Hospitalists I25.10 Athscl heart disease of [place] coronary artery w/o ang pctrs I10 Essential (primary) hypertension Office Visit 02/24/2015 [facility] I48.91 Unspecified 1:25p Assoc,pc Chriss RamirezPZackery atrial Hospitalists fibrillation I25.10 Athscl heart disease of [place] coronary artery w/o ang pctrs I10 Essential (primary) hypertension Office Visit 02/24/2015 10:55a [facility] Bhaskar I48.1 Persistent atrial Of [facility] Valente Wang, fibrillation FACC, FASNC I25.810 Atherosclerosis of CABG w/o angina pectoris Office Visit 12/26/2013 1:00p [facility] 414.9 Ischemic Heart Valente Wang, Disease Chronic FACC, FASNC Unspec Office Visit 11/15/2012 1:45p [facility] Muro 414.9 Ischemic Heart Of [facility] Valente Wang, Disease Chronic FACC, FASNC Unspec Office Visit 09/30/2012 11:15a [facility] Muro 414.9 Ischemic Heart Of Slim Wang M.D., Disease Chronic FACC, FASNC Unspec Office Visit 09/17/2012 8:15a [facility] Litra Muro 414.9 Ischemic Heart Of Slim Wang M.D., Disease Chronic FACC, FASNC Unspec Plan of Treatment Future Appointment(s):01/13/2019 3:00 pm - Jonathan Mckeon NP at [facility] Internal Jalceboq80/23/2019 - Jonathan Mckeon NPG47.00 Insomnia, unspecifiedNew Medication: Trazodone HCL 50 mg - 1-2 tablets at bedtime as needed.Follow up:4 months AWVF33.0 Major depressive disorder, recurrent, mildComments:Continue with current medications.S16.1xxA Strain of muscle, fascia and tendon at neck level, initial eNew Therapy:Physical QhqhmthQ90.5 Neoplasm of uncertain behavior of skinReferral:Rimma Bruce MD, Dermatology
[2018-10-05 09:05] VITALS: BP 134/72
--- NOTE | 2018-10-05 09:08 | UC ---
Throat Pain/Nasal Vinod HPI - HPI Summary HPI Summary: 78 yo male presents with sinus pain/pressure/congestion. He tells me that about 2 weeks ago he developed some sinus symptoms, sneezing, and a cough. He thought it was a cold and tried supportive treatment. He began to feel better and his coughing and sneezing resolved. Over the last 3 days, however, his sinus congestion and pain has worsened and is worse in the right maxillary sinus. He has not been taking anything OTC. Denies fever, chills, sore throat, cough. - History of Current Complaint Chief Complaint: UCRespiratory Stated Complaint: COLD/CONGESTION Time Seen by Provider: 10/05/18 09:07 Hx Obtained From: Patient Onset/Duration: Gradual Onset Severity: Moderate Pain Intensity: 9 Pain Scale Used: 0-10 Numeric - Allergies/Home Medications Allergies/Adverse Reactions: Allergies Allergy/AdvReac Type Severity Reaction Status Date / Time No Known Allergies Allergy Verified 10/05/18 09:05 PMH/Surg Hx/FS Hx/Imm Hx Endocrine History: Dyslipidemia Cardiovascular History: Hypertension, Atrial Fibrillation Psychological History: Anxiety, Depression - Surgical History Surgical History: Yes Surgery Procedure, Year, and Place: CABG x4-2005. Left TKR-2012 - Family History Known Family History: Positive: Cardiac Disease, Hypertension - Social History Occupation: Retired Lives: With Family Alcohol Use: Weekly Alcohol Amount: 1 beer or 1-2 glasses of wine/day Substance Use Type: None Smoking Status (MU): Former Smoker Type: Cigarettes Length of Time of Smoking/Using Tobacco: 12 years Have You Smoked in the Last Year: No When Did the Patient Quit Smoking/Using Tobacco: 44 years ago - Immunization History Most Recent Influenza Vaccination: January 2015 Most Recent Tetanus Shot: up to date Most Recent Pneumonia Vaccination: within 5 years Review of Systems All Other Systems Reviewed And Are Negative: Yes Constitutional: Positive: Negative Skin: Positive: Negative Eyes: Positive: Negative ENT: Positive: Ear Ache, Nasal Discharge, Sinus Congestion, Sinus Pain/ Tenderness Respiratory: Positive: Negative Cardiovascular: Positive: Negative Gastrointestinal: Positive: Negative Neurovascular: Positive: Negative Neurological: Positive: Negative Psychological: Positive: Negative Physical Exam - Summary Physical Exam Summary: GENERAL: NAD. WDWN. No pain distress. SKIN: No rashes, sores, lesions, or open wounds. HEENT: Head: AT/NC Eyes: EOM intact. Conjunctiva clear without inflammation or discharge. Ears: Hearing grossly normal. TMs intact, no bulging, erythema, or edema. Nose: Nasal mucosa mildly swollen and erythematous without discharge. TTP maxillary and frontal sinus. Positive post nasal drip Throat: Posterior oropharynx without exudates, erythema, or tonsillar enlargement. Uvula midline. NECK: Supple. Nontender. No lymphadenopathy. CHEST: CTAB. No r/r/w. No accessory muscle use. Breathing comfortably and in no distress. CV: Pulses intact. NEURO: Alert. PSYCH: Age appropriate behavior. Triage Information Reviewed: Yes Vital Signs: Initial Vital Signs Temp 98.8 F 10/05/18 09:00 Pulse 89 10/05/18 09:00 Resp 18 10/05/18 09:00 BP 134/72 10/05/18 09:00 Pulse Ox 99 10/05/18 09:00 Vital Signs Reviewed: Yes Throat Pain/Nasal Course/Dx - Course Course Of Treatment: Sinusitis - Differential Dx/Diagnosis Provider Diagnosis: Sinusitis Discharge - Sign-Out/Discharge Documenting (check all that apply): Patient Departure All imaging exams completed and their final reports reviewed: No Studies - Discharge Plan Condition: Stable Disposition: HOME Prescriptions: Amoxicillin/Clavulanate TAB* [Augmentin TAB 875*] 875 mg PO BID #14 tab Patient Education Materials: Sinusitis (ED) Referrals: Trino Shore MD [Primary Care Provider] - Additional Instructions: If you develop a fever, shortness of breath, chest pain, new or worsening symptoms - please call your PCP or go to the ED immediately. - Billing Disposition and Condition Condition: STABLE Disposition: Home
== END 2018-10-05 09:50 | disposition home or self-care (01) ==
LOC: UCEAST 08:51
DX: J32.9 Chronic sinusitis, unspecified (principal); I10 Essential (primary) hypertension; Z95.1 Presence of aortocoronary bypass graft; Z87.891 Personal history of nicotine dependence
CPT/HCPCS: 99212; G0463